=== PATIENT | female | born 1935 | race Caucasian/White ===

== ENCOUNTER 2018-10-14 01:39 | Emergency (ER) | payer OTHER ==
[~2018-10-14] VITALS: Ht 152.4 cm; Wt 54.5 kg
[2018-10-14 01:54] VITALS: Ht 152.4 cm; Wt 54.5 kg
[2018-10-14] MEDS ORDERED: NAMZARIC 7 MG-1 EACH PO (01:55)
[2018-10-14] MEDS ORDERED: LIPITOR40 MG PO (01:56)
[2018-10-14 02:17] LABS: BASOPHILS 0.1 % (0-2); EOSINOPHILS 0.8 % (0-7); HEMATOCRIT 38.6 % (36.0-48.0); HEMOGLOBIN 12.9 g/dL (12-16); IMMATURE GRANULOCYTES 0.3 % (0-5); LYMPHOCYTES 10.8 % (15-50); MCH 29.9 pg (26.0-34.0); MCHC 33.4 g/dL (31.0-37.0); MCV 89.6 fL (80.0-100.0); MEAN PLATELET VOLUME 9.1 fL (7.4-10.4); MONOCYTES 7.1 % (2-11); NEUTROPHILS 80.9 % (40-80); PLATELET COUNT 255 10x3/uL (130-400); RBC 4.31 10x6/uL (4.00-5.40); RDW 12.7 % (11.5-14.5); WBC 9.3 10x3/uL (4.8-10.8)
[2018-10-14 02:30] LABS: ALBUMIN 3.6 g/dL (3.4-5.0); ANION GAP 8.4 mmol/L (8-16); BILIRUBIN - TOTAL 0.41 mg/dL (0.2-1.3); CALCIUM 8.9 mg/dL (8.5-10.1); CARBON DIOXIDE 31.2 mmol/L (21.0-32.0); POTASSIUM - SERUM 3.6 mmol/L (3.5-5.1); PROTEIN - SERUM 7.2 g/dL (6.4-8.2)
[2018-10-14 02:40] LABS: T4 THYROXINE 8.5 ug/dL (4.7-13.3); THYROID STIMULATING HORMONE 2.34 uIU/mL (0.36-3.74)
[2018-10-14 02:43] LABS: APPEARANCE CLEAR (CLEAR); COLOR YELLOW (YELLOW); NITRITE NEGATIVE (NEGATIVE)
[2018-10-14 02:44] LABS: BILIRUBIN NEGATIVE (NEGATIVE); GLUCOSE NEGATIVE (NEGATIVE); KETONE SMALL mg/dL (NEGATIVE); PROTEIN TRACE mg/dL (NEGATIVE); RED CELLS - URINE 0-5 /hpf (0-5); UROBILINOGEN NORMAL (NORMAL); WHITE CELLS - URINE RARE /hpf (0-5)
[2018-10-14] MEDS ORDERED: ATIVAN0.5 MG PO (03:52)
[2018-10-14 04:19] VITALS: BP 178/85
[2018-10-27 16:43] VITALS: Ht 152.4 cm; Wt 54.5 kg
== END 2018-10-14 04:19 | disposition home or self-care (01) ==
LOC: D.ER 01:39
PROVIDERS: Emergency Medicine
DX: F41.9 Anxiety disorder, unspecified (principal); S09.90XA Unspecified injury of head, initial encounter; W18.30XA Fall on same level, unspecified, initial encounter; Y93.89 Activity, other specified; Y92.89 Other specified places as the place of occurrence of the external cause; F03.90 Unspecified dementia, unspecified severity, without behavioral disturbance, psychotic disturbance, mood disturbance, and anxiety; Z85.3 Personal history of malignant neoplasm of breast

== ENCOUNTER 2018-10-16 13:45 | Inpatient (IN) | payer MEDICARE ==
[~2018-10-16] VITALS: Ht 157.5 cm; Wt 41.7 kg
[~2018-10-16 13:45] MED LIST: ATIVAN0.5 MG PO; LIPITOR40 MG PO; NAMZARIC 7 MG-1 EACH PO
[2018-10-16 14:24] LABS: BASOPHILS 0.3 % (0-2); EOSINOPHILS 2.1 % (0-7); HEMATOCRIT 36.3 % (36.0-48.0); IMMATURE GRANULOCYTES 0.1 % (0-5); LYMPHOCYTES 18.7 % (15-50); MCH 29.7 pg (26.0-34.0); MCHC 33.1 g/dL (31.0-37.0); MCV 89.9 fL (80.0-100.0); MEAN PLATELET VOLUME 9.3 fL (7.4-10.4); MONOCYTES 8.4 % (2-11); NEUTROPHILS 70.4 % (40-80); PLATELET COUNT 240 10x3/uL (130-400); RBC 4.04 10x6/uL (4.00-5.40); RDW 12.4 % (11.5-14.5)
[2018-10-16 14:36] LABS: APPEARANCE CLEAR (CLEAR); BILIRUBIN NEGATIVE (NEGATIVE); COLOR YELLOW (YELLOW); GLUCOSE NEGATIVE (NEGATIVE); KETONE NEGATIVE (NEGATIVE); NITRITE NEGATIVE (NEGATIVE); PROTEIN TRACE mg/dL (NEGATIVE); SPECIFIC GRAVITY 1.025 (1.005-1.020); UROBILINOGEN NORMAL (NORMAL)
[2018-10-16 14:37] LABS: BACTERIA FEW /hpf (NONE SEEN); EPITHELIAL CELLS 0-5 /hpf (0-5); RED CELLS - URINE 0-5 /hpf (0-5); WHITE CELLS - URINE 0-5 /hpf (0-5)
[2018-10-16 14:40] LABS: ALBUMIN 3.2 g/dL (3.4-5.0); ANION GAP 7.9 mmol/L (8-16); BILIRUBIN - TOTAL 0.23 mg/dL (0.2-1.3); CARBON DIOXIDE 31.6 mmol/L (21.0-32.0); POTASSIUM - SERUM 3.5 mmol/L (3.5-5.1); PROTEIN - SERUM 6.6 g/dL (6.4-8.2)
[2018-10-16 14:43] LABS: UDS - AMPHET NEGATIVE QUAL (NEGATIVE); UDS - BARB NEGATIVE QUAL (NEGATIVE); UDS - BENZO NEGATIVE QUAL (NEGATIVE); UDS - COCAINE NEGATIVE QUAL (NEGATIVE); UDS - OPIATE NEGATIVE QUAL (NEGATIVE); UDS - PCP NEGATIVE QUAL (NEGATIVE); UDS - THC NEGATIVE QUAL (NEGATIVE)
[2018-10-16 14:49] LABS: ACETAMINOPHEN 4.7 ug/mL (10.0-30.0); THYROID STIMULATING HORMONE 2.1 uIU/mL (0.36-3.74)
--- NOTE | 2018-10-16 15:40 | NUR ---
CALLED JAIL FOR SCREENING
--- NOTE | 2018-10-16 15:50 | NUR ---
PATIENT AND FAMILY UPDATED ON PLAN OF CARE AND DELAYS IN CARE; NO NEEDS NOTED; WILL CONTINUE TO MONITOR.
[2018-10-16 16:19] VITALS: BP 157/102
--- NOTE | 2018-10-16 18:20 | NUR ---
PATIENT ARRIVED TO UNIT ACCOMPANIED BY DAUGHTER AND SON-IN-LAW. PT. QUITE ARGUMENTATIVE AND DEMANDING TO GO OUTSIDE AND SMOKE A CIGARETTE. WEIGHT OBTAINED IN DESIGNATED W/C WITH DESIGNATED SCALE. WEIGHT MEASURED AT 89.0 LBS. PATIENT ARGUMENTATIVE AND REFUSED TO SEND PURSE AND VALUABLES HOME WITH FAMILY. FAMILY STATED THERE WAS SARGETN IN PATIENT'S PURSE. FAMILY INFORMED OF POLICY TO PLACE VALUABLES IN SAFE AT WHICH TIME FAMILY AGREED. VERBAL CONSENT GIVEN BY DAUGHTER MARSHALL DUQUE, LEGAL GUARDIAN. PATIENT ASSISTED TO DAYROOM TO JOIN PEERS.
--- NOTE | 2018-10-16 18:54 | NUR ---
PATIENT SITTING IN RECLINER VISITING WITH PEERS. CALM AT THIS TIME.
[2018-10-16 21:15] VITALS: BP 150/70
--- NOTE | 2018-10-16 22:42 | NUR ---
RECEIVED IN DAYROOM. SITTING IN A RECLINER WITH PEERS BY HER SIDE. CALM AND COOPERATIVE WITH CARE AND ASSESSMENT. NO SIGNS OF AGGRESSION. POOR SHORT TERM MEMORY. REDIRECT AND REORIENT NEEDED. PACING IN HALLWAY OUTSIDE OF NURSES STATION AT THIS TIME. CONTINUE PLAN OF CARE
[2018-10-17 01:02] VITALS: BP 150/70
[2018-10-17 07:00] VITALS: BP 153/95
[2018-10-17 07:11] LABS: BASOPHILS 0.2 % (0-2); EOSINOPHILS 1.9 % (0-7); HEMATOCRIT 38.1 % (36.0-48.0); HEMOGLOBIN 12.6 g/dL (12-16); IMMATURE GRANULOCYTES 0.2 % (0-5); LYMPHOCYTES 16.6 % (15-50); MCH 29.4 pg (26.0-34.0); MCHC 33.1 g/dL (31.0-37.0); MCV 88.8 fL (80.0-100.0); MEAN PLATELET VOLUME 9.8 fL (7.4-10.4); MONOCYTES 6.4 % (2-11); NEUTROPHILS 74.7 % (40-80); PLATELET COUNT 265 10x3/uL (130-400); RBC 4.29 10x6/uL (4.00-5.40); RDW 12.5 % (11.5-14.5)
[2018-10-17 07:25] LABS: WBC 9.3 10x3/uL (4.8-10.8)
[2018-10-17 07:49] LABS: ALBUMIN 3.6 g/dL (3.4-5.0); ANION GAP 10.8 mmol/L (8-16); BILIRUBIN - TOTAL 0.31 mg/dL (0.2-1.3); CHOL - HDL RATIO 2.4 ratio (2.3-4.1); CREATININE - SERUM 0.9 mg/dL (0.6-1.3); LDL-HDL RATIO 1.2 ratio (1.5-3.5); POTASSIUM - SERUM 3.8 mmol/L (3.5-5.1); PROTEIN - SERUM 6.8 g/dL (6.4-8.2); THYROID STIMULATING HORMONE 1.99 uIU/mL (0.36-3.74)
[2018-10-17 12:04] VITALS: BMI 17.4
--- NOTE | 2018-10-17 12:23 | NUR ---
PATIENT ALERT, RESTLESS, PACING ABOUT UNIT LOOKING FOR HER PURSE, EXIT-SEEKING, QUITE CONFUSED, POOR SHORT-TERM MEMORY. MEDS ADMIN PER ORDERS. CONT POC DIRECTED.
[2018-10-17 13:24] VITALS: BMI 17.3
--- NOTE | 2018-10-17 18:01 | NUR ---
DAUGHTER CALLED TO CHECK ON PATIENT.
--- NOTE | 2018-10-17 21:48 | NUR ---
RECIEVED IN HALLWAY OUTSIDE OF NURSES STATION. SITTING IN A CHAIR WITH PEERS AT HER SIDE. SOCIALIZING AT TIMES. CONFUSED. CALM AND COOPERATIVE WITH CARE AND ASSESSMENT. REDIRECT AND REORIENT NEEDED. RESTING IN BED EYES CLOSED AT THIS TIME. CONTINUE PLAN OF CARE
[2018-10-17 22:28] VITALS: BP 101/58
[2018-10-18 06:09] LABS: RAPID PLASMA REAGIN Non Reactive (Non Reactive)
[2018-10-18 08:19] VITALS: BP 122/61
--- NOTE | 2018-10-18 14:47 | NUR ---
PATIENT IS AWAKE AND ALERT, WITH LOTS OF CONFUSION NOTED. SHE REPEATS AND ASKS THE SAME QUESTION FREQUENTLY. MEDICATION COMPLIANT. CALM AND COOPERATIVE WITH CARE AND ASSESSMENT. REDIRECT AND REORIENT NEEDED. WILL CONTINUE PLAN OF CARE.
--- NOTE | 2018-10-18 14:50 | PSY ---
PATIENT NAME:CLAUDINE FLYNN MEDICAL RECORD: [id number] : 37 LOCATION:[facility] ADMISSION DATE: 10/16/18 ACCOUNT: [id number] PSYCHIATRIC EVALUATION DATE OF EVALUATION: 10/17/18 PSYCHIATRIC EVALUATION IDENTIFYING DATA: The patient is 82 years old and she is admitted to the hospital on a voluntary basis. CHIEF COMPLAINT: Aggression. HISTORY OF PRESENT ILLNESS: The patient lives alone in an apartment in [place], [place]. Her daughter lives here in [place] and has obtained guardianship. The patient is apparently confused and becomes agitated and attempts to leave the apartment for reasons that do not make sense. When the patient was brought here to stay with her daughter, she would become confused, particularly at night, and sometimes would not recognize the family members and would become agitated. The patient is very nice. She is trying very hard to be cooperative, but it is clear she does not know what is going on, does not understand, and she does have some awareness of this and rubs her head and says she just cannot remember anything. PAST MEDICAL HISTORY: Significant for an established diagnosis of dementia. She also has history of hypertension and osteoporosis. PAST PSYCHIATRIC HISTORY: Significant for the diagnosis of dementia, although I am not sure when or how that diagnosis was made. ALLERGIES: No known drug allergies. CURRENT MEDICATIONS: Include Namenda, Aricept, and Lipitor. FAMILY HISTORY: Noncontributory. SOCIAL HISTORY: The patient is . She has one adult daughter. 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 She has no history of drug or alcohol abuse. MENTAL STATUS EXAMINATION: The patient is awake, alert, and oriented to person only. Her mood is euthymic. Her affect is appropriate. Thought processes are circumstantial. Memory, concentration, and abstraction abilities are at least moderately impaired. She denies intent to harm herself or others. She denies psychotic symptoms. ASSETS: Supportive family members. LIABILITIES: Limited insight. DIAGNOSTIC IMPRESSION: AXIS I: Major neurocognitive disorder of the Alzheimer's type with behavioral disturbances. AXIS II: None. AXIS III: History of breast cancer, history of closed head injury, and hyperlipidemia. AXIS IV: Severe. AXIS V: Global assessment of functioning is 25. PLAN: At this time, the patient is admitted to the hospital for comprehensive medical, psychological, and social evaluation. She will be treated with memory enhancing and mood stabilizing medications. Her long-term prognosis is guarded. TRANSINT:[id number] Voice Confirmation ID: [id number] DOCUMENT ID: [id number] SHRUTHI DOE MD at 1450 CC: [id number] DICTATION DATE: 10/17/18 1615 FOURTH HAND: 10/17/18 1632 ADM IN [place] [id number] [place] [id number]
--- NOTE | 2018-10-18 20:14 | NUR ---
RECEIVED IN DAYROOM. LAYING ON SOFA WITH EYES CLOSED. RESPONDS TO VOICE. CALM AND COOPERATIVE WITH CARE AND ASSESSMENT. CONFUSED. CALM AND COOPERATIVE WITH CARE AND ASSESSMENT. REDIRECT AND REORIENT NEEDED. CONTINUES TO LAY QUIETLY ON SOFA. CONTINUE PLAN OF CARE
[2018-10-18 20:17] VITALS: BP 104/58
--- NOTE | 2018-10-18 21:18 | NUR ---
RECEIVED IN DAYROOM. LAYING ON SOFA WITH EYES CLOSED. RESPONSD TO VOICE. CALM AND COOPERATIVE WITH CARE AND ASSESSMENT. CONFUSED. REDIRECT AND REORIENT NEEDED. RESTING IN BED WITH EYES OPEN AT THIS TIME. CONTINUE PLAN OF CARE
--- NOTE | 2018-10-19 07:30 | NUR ---
REC'D PT IN HALLWAY SOCIALIZING WITH PEERS. AWAKE AND ALERT TO PERSON ONLY. PT IS VERY CONFUSED. CALM AND COOPERATIVE WITH ASSESSMENT. MED COMPLIANT. FALL PRECAUTIONS IN PLACE. REDIRECT AND REORIENT NEEDED. WILL CPOC.
[2018-10-19 09:00] VITALS: BP 123/54
--- NOTE | 2018-10-19 16:31 | NUR ---
FERCHO SPOKE WITH PT'S DTR AND INFORMED HER THAT LETTER FOR [employer] HAS BEEN FAXED AND IS READY FOR PICKUP. LACY STATED SHE WAS TOLD SW COULD MAIL ORIGINAL LETTER TO ENTRY SPECIALIST. FERCHO STATED SHE WOULD GO WITH ORIGINAL PLAN FOR HER TO COME PICK IT UP DUE TO COURT BEING TOMORROW IN CASE ORIGINAL IS NEEDED. LACY STATED SHE WOULD SEND HIM TO COME PICK IT UP.
--- NOTE | 2018-10-19 16:41 | PN ---
PATIENT:CLAUDINE FLYNN MEDICAL RECORD: [id number] LOCATION:[facility] ADMISSION DATE: 10/16/18 PROGRESS NOTE DATE OF SERVICE: 10/18/2018 SUBJECTIVE: The patient's case was discussed with staff. She has no new complaint. OBJECTIVE: The patient is tolerating her Aricept and Namenda well. She is coming to us on a scheduled dose of Ativan, which I would like to taper her off of. Starting today, I am going to reduce the dose by one-fourth and will observe her for any changes that might be associated with this. TRANSINT:[id number] Voice Confirmation ID: [id number] DOCUMENT ID: [id number] SHRUTHI DOE MD at 1641 CC: [id number] DICTATION DATE: 10/18/18 1528 COSMETOLOGY PROFESSOR: 10/18/181947 ADM IN [facility] [address] [place] [address]
--- NOTE | 2018-10-19 23:01 | NUR ---
B.) Patient is alert and oriented to self. She has some recollection of things that happened this afternoon but remains pleasantly confused. I.) Redirected and reorient as needed. R.) Patient verbalizes understand. Continue to redirect and reorient as needed. P.) Continue Plan of Care
[2018-10-20 10:47] VITALS: BP 116/71
--- NOTE | 2018-10-20 12:22 | NUR ---
RECEIVED PATIENT IN DINING ROOM FOR B'FAST, ALERT, CALM, COOPERATIVE, CONFUSED. CONFUSION DECREASED SINCE THIS NURSES LAST ASSESSMENT. PT NO LONGER EXIT-SEEKING. MEDS ADMIN PER ORDERS WITH COMPLETE MED COMPLIANCE NOTED. CONT POC DIRECTED.
--- NOTE | 2018-10-20 12:35 | NUR ---
Nutrition team treatment review: Diet: regular vegetarian PO intake 83% average of last 6 meals Labs reviewed +BM Wt: 89# PO intake good at this time. Will offer nutritional supplements RDN monitoring wt closely.
--- NOTE | 2018-10-20 15:43 | PN ---
PATIENT:CLAUDINE FLYNN MEDICAL RECORD: [id number] LOCATION:[facility] ADMISSION DATE: 10/16/18 PROGRESS NOTE DATE OF SERVICE: 10/19/2018 SUBJECTIVE: The patient's case was discussed with staff. She has no new complaint. OBJECTIVE: The patient denies intent to harm herself or others. She is tolerating her medicines well. I have started tapering her Ativan and she may be a little more verbal than previous, but she certainly is not out of control. ASSESSMENT: No change in diagnoses. PLAN: The patient's daughter has applied for guardianship. I completed the necessary affidavit papers for the court hearing today. I believe the court hearing is on Wednesday morning of this week and once that guardianship papers are in place it will be possible to place Ms. Flynn in a secure facility that can meet her needs. Unfortunately, she is having a terrible time with all of this, not only could she not remember what we have talked about but the suggestion of not being able to go back to her apartment in [place] is very distressing to her. I think she will settle in well when she is in the right environment and has the support and comfort of a routine and not having to worry about the various things necessary to run the household and she will have a lot of social support, but it will take a little bit of adjustment for her to develop that comfort. TRANSINT:[id number] Voice Confirmation ID: [id number] DOCUMENT ID: [id number] SHRUTHI DOE MD at 1543 CC: [id number] DICTATION DATE: 10/19/18 171 UX RESEARCH ASSOCIATE: 10/19/18 2018 ADM IN [facility] [address] [place] [address]
--- NOTE | 2018-10-20 17:00 | NUR ---
FAMILY VISITED TODAY. ASHELY WELL.
[2018-10-20 20:08] VITALS: BP 103/55
--- NOTE | 2018-10-20 23:44 | NUR ---
B.) PATIENT IS ALERT AND ORIENTED TO SELF ONLY. SHE IS PLEASANTLY CONFUSED WITH LITTLE SHORT TERM RECALL. SHE STATES "I WANT TO KNOW WHAT I NEED TO DO TO GO HOME TO [place]." SHE IS PREOCCUPIED WITH HER DIRTY LAUNDRY QUITE OFTEN. I.) REDIRECT AND REORIENT NEEDED. PROVIDED PM MEDICATIONS. R.) DESPITE MULTIPLE ATTEMPTS TO REORIENT SHE REMAINS CONFUSED. WILL CONTINUE TO MONITOR. COMPLIANT WITH ALL MEDICATIONS. P.) CONTINUE PLAN OF CARE
[2018-10-21 08:09] LABS: APPEARANCE CLEAR (CLEAR); BILIRUBIN NEGATIVE (NEGATIVE); COLOR YELLOW (YELLOW); GLUCOSE NEGATIVE (NEGATIVE); KETONE NEGATIVE (NEGATIVE); NITRITE NEGATIVE (NEGATIVE); PROTEIN NEGATIVE (NEGATIVE); UROBILINOGEN NORMAL (NORMAL)
[2018-10-21 08:10] LABS: BACTERIA FEW /hpf (NONE SEEN); EPITHELIAL CELLS RARE /hpf (0-5); RED CELLS - URINE NONE SEEN /hpf (0-5); WHITE CELLS - URINE OCC /hpf (0-5)
--- NOTE | 2018-10-21 09:55 | NUR ---
RECEIVED PATIENT IN DINING ROOM FOR B'FAST, ALERT, CALM, CONFUSED. VERY POOR STM. FREQUENTLY ASKS ABOUT PURSE, BUT FORGETS THAT PURSE HAS BEEN SENT HOME WITH FAMILY. MEDS ADMIN PER ORDERS WITH COMPLETE MED COMPLIANCE NOTED. COOPERATIVE WITH POC. CONT POC DIRECTED.
--- NOTE | 2018-10-21 10:02 | NUR ---
THIS NURSE ATTEMPTED TO ASSIST PATIENT TO THE RESTROOM AFTER PATIENT C/O SHE HAD A ACCIDENT DUE TO LAXATIVES GIVEN THIS A.M. PATIENT REFUSED TO ALLOW NURSE TO ASSIST PATIENT TO RESTROOM OR CHANGE PATIENTS CLOTHES. NURSE AND MHT ATTEMPTED TO ASSIST PATIENT WITH CLOTHES CHANGE. PT REFUSED. PT STATED "SHE WOULDN'T LET ME GO TO THE RESTROOM." NURSE INQUIRED WHO THE PATIENT WAS SPEAKING OF. PT DID NOT STATE. NURSE ASKED WHY THE PATIENT DID NOT GO THE RESTROOM WHEN THE FEELING HIT HER." PATIENT CONTINUE TO STATE SHE DID NOT LET ME GO TO THE RESTROOM. NURSE EXPLAINED TO PATIENT THAT THE RESTROOM WAS ALWAYS OPEN FOR THE PATIENTS. PT DID NOT VERBALIZE UNDERSTANDING. EXPLAINED 2X THAT PATIENT CAN GO TO THE RESTROOM. PATIENT DID SHOWER WITH NO ASSISTANCE. REPORTED THE D. GUEVARA AND MEDICATION WAS CHANGED ACCORDING.
[2018-10-21 10:23] VITALS: BP 122/58
--- NOTE | 2018-10-21 11:59 | PN ---
PATIENT:CLAUDINE FLYNN MEDICAL RECORD: [id number] LOCATION:[facility] ADMISSION DATE: 10/16/18 PROGRESS NOTE DATE OF SERVICE: 10/20/2018 SUBJECTIVE: The patient's case was discussed with staff. She has no new complaint. OBJECTIVE: The patient is significantly calmer today. She has no recollection of having met me in any of the past 4 days that she has been here. She very much wants to tell me the same story about her daughter bringing her here from [place]. I do indulge her in this. Interestingly, she has insight that she is not remembering things. She denies that she would seek to harm herself or others. ASSESSMENT: No change in diagnoses. PLAN: The patient's Ativan is going to be tapered down further. Her long-term prognosis is guarded. TRANSINT:[id number] Voice Confirmation ID: [id number] DOCUMENT ID: [id number] SHRUTHI DOE MD at 1159 CC: [id number] DICTATION DATE: 10/20/18 1555 INSOLE CEMENTER: 10/20/18 1924 ADM IN [facility] [address] [place] [id number]
--- NOTE | 2018-10-21 12:42 | NUR ---
PT RECEIVED FIRST DOSE OF LEVAQUIN 500 MG X 3 DOSES. PT TOLERATED WELL. EDUCATION GIVEN. WILL CONT TO MONITOR FOR S/SX DUE TO ANTIBIOTIC.
[2018-10-21 21:27] VITALS: BP 143/83
--- NOTE | 2018-10-21 21:42 | NUR ---
PATIENT IS CONFUSED, FORGETFUL, COMPLIANT WITH MEDS, NO ADVERSE REACTION. WILL FOLLOW POC
[2018-10-22 07:35] VITALS: BP 110/84
--- NOTE | 2018-10-22 09:16 | NUR ---
PT IS FORGETFUL, CONFUSED AT TIMES. PLESANT WITH STAFF AND PEERS. PT WILL ASK A QUESTIONS AND REASK QUESTIONS MINUTES AFTER. NO ACUTE DISTRESS NOTED. RESP EVEN AND NONLABORED. MED COMPLIANT.
--- NOTE | 2018-10-22 11:59 | PN ---
PATIENT:CLAUDINE FLYNN MEDICAL RECORD: [id number] LOCATION:[facility] ADMISSION DATE: 10/16/18 PROGRESS NOTE DATE OF SERVICE: 10/21/2018 SUBJECTIVE: The patient's case was discussed with staff. She has no new complaint. OBJECTIVE: The patient is in good behavioral control. She is restless and upset. She wants to go back to [place] and says that no one from her family wants her here or has spoken to her since she has been here. Both of those statements are not true. She does not remember them speaking to her, which they come at visitation time and when I tell her that is not true, she gets angry. ASSESSMENT: No change in diagnoses. PLAN: The patient clearly is worse today, but I am going to take a conservative approach to her pharmacology and we will just see if this is something that continues or perhaps she is just having an isolated bad day. TRANSINT:[id number] Voice Confirmation ID: [id number] DOCUMENT ID: [id number] SHRUTHI DOE MD at 1159 CC: [id number] DICTATION DATE: 10/21/18 1208 PULP BEATER: 10/21/18 1318 ADM IN [facility] [address] [place] [address]
--- NOTE | 2018-10-22 17:39 | NUR ---
PATIENT FAMILY CAME TO VISITATION THIS SHIFT. THIS NURSE GAVE THE DAUGHTER A SUGEGSTION FROM THE DOCTOR TO HELP HER MEMORY. THIS NURSE HAD DAUGHTER WRITE OUT A LETTER FOR HER TO ANSWER SOME OF THE QUESTIONS SHE HAS BEEN ASKING. WHEN PATIENT RECEIVED THE LETTER SHE STATED "THAT IS GOING TO HELP ME VERY MUCH." PATIENT HAS BEEN ADDING ITEMS TO HER LETTER FOR HER MEMORY HELP. WILL REORIENT NEEDED.
--- NOTE | 2018-10-22 21:48 | NUR ---
PATIENT IS VERY CONFUSED, SHE ASKS THE SAME QUESTIONS OVER AND OVER, COMPLIANT WITH MEDS. CAN MAKE NEEDS KNOWN. HER DAUGHTER DOES COME TO VISIT.
[2018-10-22 21:54] VITALS: BP 128/76
[2018-10-23 08:01] VITALS: BP 118/58
--- NOTE | 2018-10-23 09:51 | NUR ---
PATIENT IS FORGETFUL. ALERT AND ORIENTED TO SELF. PATIENT DOES HAVE A NOTE WITH HER TO ASSIST WITH SOME OF HER QUESTIONS. RESP EVEN AND NONLABORED. NO ACUTE DISTRESS NOTED. MED COMPLIANT.
--- NOTE | 2018-10-23 12:20 | PN ---
PATIENT:CLAUDINE FLYNN MEDICAL RECORD: [id number] LOCATION:[facility] ADMISSION DATE: 10/16/18 PROGRESS NOTE DATE OF SERVICE: 10/22/2018 SUBJECTIVE: The patient's case was discussed with staff. She has no new complaint. OBJECTIVE: The patient denies intent to harm herself or others. She is tolerating her medicines well. ASSESSMENT: No change in diagnoses. PLAN: The patient is having some difficulty adjusting to her new circumstances. I am going to treat her with a low dose of an antidepressant to assist her at this difficult time. She has a little bit of insight that she has no real short-term memory, but it is causing a lot of problems. Every day, she meets me for the first time and every day she says her daughter has not been here or contacted her at all, which is not true and every day she is told that she is going to be moved from her apartment in [place] to a facility here close to her daughter and that is always a news to her as well. Each time she hears these things, it distresses her. She is not acutely dangerous. She does need 74-jnif-h-day supervision and she does have severe short-term memory loss. TRANSINT:[id number] Voice Confirmation ID: [id number] DOCUMENT ID: [id number] SHRUTHI DOE MD at 1220 CC: [id number] DICTATION DATE: 10/22/18 1232 NANOTECHNOLOGY ENGINEERING TECHNICIAN: 10/22/18 2320 ADM IN [place] [id number] [place] [address]
--- NOTE | 2018-10-23 17:55 | NUR ---
PATIENT IS CONFUSED AND ASKING TO GO TO HER APARTMENT. NURSES HAS TO EXPLAIN MULTIPLE TIMES AND REFER TO LETTER THAT PATIENT IS IN HOSPITAL AND WAS NOT GOING TO HER APARTMENT TONIGHT. WILL CONT PLAN OF CARE.
[2018-10-23 20:47] VITALS: BP 156/66
--- NOTE | 2018-10-23 22:10 | NUR ---
RECEIVED IN DAYROOM. SITTING IN A CHAIR WITH PEERS BY HER SIDE. CALM AND COOPERATIVE WITH CARE AND ASSESSMENT. ENCOURAGE TO EXPRESS NEEDS. RESTING IN BED WITH EYES CLOSED AT THIS TIME. CONTINUE PLAN OF CARE
[2018-10-24 07:00] VITALS: BP 112/60
--- NOTE | 2018-10-24 12:10 | NUR ---
PATIENT IS AWAKE AND ALERT WITH CONFUSION NOTED. CALM AND COOPERATIVE WITH CARE AND ASSESSMENT. MEDICATION COMPLIANT. FALL PRECAUTIONS IN PLACE. CONTINUE PLAN OF CARE.
--- NOTE | 2018-10-24 14:45 | PN ---
PATIENT:CLAUDINE FLYNN MEDICAL RECORD: [id number] LOCATION:[facility] ADMISSION DATE: 10/16/18 PROGRESS NOTE DATE OF SERVICE: 10/23/2018 SUBJECTIVE: The patient's case was discussed with staff. She has no new complaint. OBJECTIVE: The patient is in good behavioral control with limited insight about her condition. She does tolerate her medicines well. ASSESSMENT: No change in diagnoses. PLAN: The patient will be maintained on current medicines. Her daughter is looking for placement here in [place]. I will get an update on where those plans stand tomorrow when I meet with the full treatment team. TRANSINT:[id number] Voice Confirmation ID: [id number] DOCUMENT ID: [id number] SHRUTHI DOE MD at 1445 CC: [id number] DICTATION DATE: 10/23/18 1227 WASHROOM OPERATOR: 10/23/18 1406 ADM IN [place] [id number] [place] [address]
--- NOTE | 2018-10-24 21:13 | NUR ---
RECEIVED IN DAYROOM. SITTING IN A CHAIR WITH PEERS AT HER SIDE. SOCILIZING AT TIMES. CALM AND COOPERATIVE WITH CARE AND ASSESSMENT. CONFUSED. REDIRECT AND REORIENT NEEDED. CONTINUES TO SIT QUIETLY. CONTINUE PLAN OF CARE
[2018-10-24 22:23] VITALS: BP 113/59
[2018-10-25 08:30] VITALS: BP 126/69
--- NOTE | 2018-10-25 10:00 | NUR ---
RECEIVED PATIENT IN DINING ROOM FOR B'FAST, ALERT, CALM, CONFUSED, POOR STM. NO AGGRESSION NOTED. MEDS ADMIN PER ORDERS WITH COMPLETE MED COMPLIANCE NOTED. COOPERATIVE WITH GROUP AND STAFF REQUESTS. CONT POC INCLUDING MEDS AND GROUP THERAPY NEEDED.
--- NOTE | 2018-10-25 11:14 | PN ---
PATIENT:CLAUDINE FLYNN MEDICAL RECORD: [id number] LOCATION:[facility] ADMISSION DATE: 10/16/18 PROGRESS NOTE DATE OF SERVICE: 10/24/2018 SUBJECTIVE: The patient's case was discussed with staff. She has no new complaint. OBJECTIVE: The patient is significantly calmer. She has limited insight about her condition. She has virtually no short-term memory and everyday she meets me for the first time and wants to tell me in great detail her story and situation. She seems offended when I tell her that we have met and that we have already discussed this, but she still is wanting to explain to me what is going on. Her daughter is looking for a local retirement and has recommended one to us. We will send over paperwork to see if that can be approved. ASSESSMENT: No change in diagnoses. PLAN: As above. Current medicines will be maintained and placement at the [facility] will be sought. TRANSINT:[id number] Voice Confirmation ID: [id number] DOCUMENT ID: [id number] SHRUTHI DOE MD at 1114 CC: [id number] DICTATION DATE: 10/24/18 1535 MATERIAL PREPARATION WORKER: 10/24/18 1716 ADM IN [place] [id number] [place] [address]
--- NOTE | 2018-10-25 17:17 | NUR ---
JACQUELINE COMPLETED. PT PACING AND EXIT-SEEKING.
[2018-10-25 20:23] VITALS: BP 120/53
--- NOTE | 2018-10-25 21:16 | NUR ---
RECEIVED IN DAYROOM. RESTING QUIETLY IN A CHAIR. CALM AND COOPERATIVE BUT CONFUSED. ENCOURAGE TO EXPRESS NEEDS. CONTINUES TO SIT QUIETLY. CONTINUE PLAN OF CARE
--- NOTE | 2018-10-26 10:33 | NUR ---
RECEIVED PT IN DINING ROOM FOR B'FAST, ALERT, CALM, CONFUSED, PLEASANT MOOD. MEDS ADMIN PER ORDERS WITH COMPLETE MED COMPLIANCE NOTED. COOPERATIVE WITH PLAN OF CARE. CONT POC DIRECTED.
[2018-10-26 10:59] VITALS: BP 117/66
--- NOTE | 2018-10-26 15:32 | PN ---
PATIENT:CLAUDINE FLYNN MEDICAL RECORD: [id number] LOCATION:[facility] ADMISSION DATE: 10/16/18 PROGRESS NOTE DATE OF SERVICE: 10/25/2018 SUBJECTIVE: The patient's case was discussed with staff. She has no new complaint. OBJECTIVE: The patient is in good behavioral control with limited insight about her condition. She is significantly calmer than she has been. ASSESSMENT: No change in diagnoses. PLAN: The patient will be maintained on current medicines. She is eating reasonably well. She does only weighs 92 pounds, but she is also only 5 feet tall, so she does not have a lot of room to lose much more weight and I think the amount she is eating is probably going to be pretty close to enough to keep her weight stable. At this point, we are looking for placement. She has been referred to the [facility]. I think once they approve her, she can be discharged. TRANSINT:[id number] Voice Confirmation ID: [id number] DOCUMENT ID: [id number] SHRUTHI DOE MD at 1532 CC: [id number] DICTATION DATE: 10/25/18 1142 PAINT COATING MACHINE OPERATOR: 10/25/18 1158 ADM IN [place] [id number] [place] [address]
[2018-10-26] MEDS ORDERED: DONEPEZIL HCL5 MG PO (16:54)
[2018-10-26] MEDS ORDERED: Senokot TAB PO (16:55)
[2018-10-26] MEDS ORDERED: NAMENDA5 MG PO (16:55)
[2018-10-26] MEDS ORDERED: FLORAJEN3 CAPS460 MG PO (16:55)
[2018-10-26] MEDS ORDERED: Megace ES [CHEMO] PO (16:55)
--- NOTE | 2018-10-26 22:25 | NUR ---
PATIENT IS CONFUSED ALWAYS, NO INSIGHT TO WHY SHE IS HERE. SHE WORRIES. COMPLIANT WITH MEDS. WILL FOLLOW POC
[2018-10-27 10:44] VITALS: BP 128/63
--- NOTE | 2018-10-27 10:48 | NUR ---
Team Treatment Review: Diet: Regular Vegetarian Diet PO Intake: 69% avg per 9 meals Wt: 92 lbs (+3 lbs since 10/17) BM: 1 on 10/26 Meds: Jackson Pettit -Will monitor closely -Clincal Dietitan Following
--- NOTE | 2018-10-27 11:21 | PN ---
PATIENT:CLAUDINE FLYNN MEDICAL RECORD: [id number] LOCATION:[facility] ADMISSION DATE: 10/16/18 PROGRESS NOTE DATE OF SERVICE: 10/26/2018 SUBJECTIVE: The patient's case was discussed with staff. She has no new complaints. OBJECTIVE: The patient is in good behavioral control. She has very limited insight about her condition and almost no short-term memory. ASSESSMENT: No change in diagnoses. PLAN: The patient does not pose a direct or eminent risk to herself at this point and may be reasonably transitioned out of the hospital tomorrow. TRANSINT:[id number] Voice Confirmation ID: [id number] DOCUMENT ID: [id number] SHRUTHI DOE MD at 1121 CC: [id number] DICTATION DATE: 10/26/18 165 TOOLS AND PARTS ATTENDANT: 10/26/18 2256 ADM IN [place] [address] [place] [address]
--- NOTE | 2018-10-27 11:45 | NUR ---
DISCHARGED TO [facility].DAUGHTER HERE .HAS ALL PERSONAL ITEMS AND INSTRUCTIONS.IS AMBULATORY WITH STEADY GAIT.VERY POOR SHORT TERM MEMORY.COMPLIANT WITH STAFF AND MEDS.ALL QUESTIONS ANSWERED.SMILING,VOICES HAPPY TO BE LEAVING.
[2018-10-27 16:43] VITALS: Ht 157.5 cm; Wt 41.7 kg
== END 2018-10-27 11:45 | DRG 57 ==
LOC: D.ER 13:45 → D.PSYCH 17:49
PROVIDERS: Family Medicine; ADMIT Psychiatry & Neurology Psychiatry; ATTEND Psychiatry & Neurology Psychiatry
DX: G30.9 Alzheimer's disease, unspecified (principal); F02.81 Dementia in other diseases classified elsewhere, unspecified severity, with behavioral disturbance; E78.5 Hyperlipidemia, unspecified; Z85.3 Personal history of malignant neoplasm of breast; W19.XXXD Unspecified fall, subsequent encounter; Z87.820 Personal history of traumatic brain injury; F41.9 Anxiety disorder, unspecified; Z90.11 Acquired absence of right breast and nipple

== ENCOUNTER → 2020-05-23 14:04 | Outpatient (CLI) | payer MEDICARE ==
[~2020-05-23 14:04] MED LIST changes: +DONEPEZIL HCL5 MG PO; +FLORAJEN3 CAPS460 MG PO; +Megace ES [CHEMO] PO; +NAMENDA5 MG PO; +Senokot TAB PO
== END | disposition home or self-care (01) ==
LOC: D.CT 14:00
PROVIDERS: ATTEND Family Medicine
DX: Z87.81 Personal history of (healed) traumatic fracture (principal)

== ENCOUNTER → 2020-05-24 13:29 | Outpatient (CLI) | payer MEDICARE, MEDICAID | END | disposition home or self-care (01) | LOC: D.CT 13:29 | PROVIDERS: ATTEND Family Medicine | DX: Z87.81 Personal history of (healed) traumatic fracture (principal) ==